=== PATIENT | male | born 1960 | race American Indian/Alaskan Native ===

== ENCOUNTER 2022-04-04 13:24 | Observation (INO) | payer BC, MEDICAID, OTHER ==
[2022-04-04] MEDS ORDERED: MVI, Adult with Vitamin K 10 ML, Folic Acid 1 MG, Thiamine 100 MG in Lactated Ringers 1... IV ONE ×4 (13:46)
[2022-04-04] MEDS ORDERED: Promethazine 25 MG/ML SDV IM ONE (13:54)
[2022-04-04 14:32] LABS: ANION GAP 22.5 mEq/L (7-13)
[2022-04-04] MEDS ORDERED: Sodium Chloride 0.9% 1,000 ML IV ONE ×3 (14:53→17:35)
[2022-04-04] MEDS ORDERED: Iopamidol 612 MG/ML 100 ML Bottle IVPUSH ONE (14:54)
[2022-04-04 16:04] LABS: AMPHETAMINES,URINE NEGATIVE (NEGATIVE); BARBITURATES,URINE NEGATIVE (NEGATIVE); BENZODIAZEPINE,URINE NEGATIVE (NEGATIVE); MDMA (ECSTASY), URINE NEGATIVE (NEGATIVE); METHADONE,URINE NEGATIVE (NEGATIVE); METHAMPHETAMINES,URINE NEGATIVE (NEGATIVE); OPIATES,URINE NEGATIVE (NEGATIVE); OXYCODONE,URINE NEGATIVE (NEGATIVE); PHENCYCLIDINE,URINE NEGATIVE (NEGATIVE); TCA,URINE NEGATIVE (NEGATIVE)
[2022-04-04] MEDS ORDERED: Sodium Chloride 0.9% 1,000 ML IV SCH (21:00)
[2022-04-04] MEDS ORDERED: 50% Dextrose in Water 50 ML Syringe IVPUSH PRN (21:03)
[2022-04-04] MEDS ORDERED: Glucagon,Human Recombinant 1 MG Vial IM PRN (21:03)
[2022-04-04] MEDS ORDERED: ClonazePAM 0.5 MG Tab PO SCH (21:15)
[2022-04-04 21:21] LABS: HEMOGLOBIN A1C 9.8 % (<5.7)
[2022-04-04] MEDS: Acetaminophen 325 MG Tab PO PRN (21:50)
[2022-04-04] MEDS: ClonazePAM 0.5 MG Tab PO SCH (21:51)
[2022-04-04] MEDS: Insulin Lispro 100 Units/ML 3 ML Vial SUBCUT SCH (21:51)
[2022-04-04] MEDS: LORazepam 0.5 MG Tab PO PRN (23:21)
[2022-04-04] MEDS: Pantoprazole 40 MG Vial IVPUSH SCH (23:21)
[2022-04-04] MEDS: Ondansetron 4 MG/2 ML SDV IVPUSH PRN (23:21)
[2022-04-05] MEDS: ClonazePAM 0.5 MG Tab PO SCH ×3 (05:07→21:58)
[2022-04-05] MEDS ORDERED: Pantoprazole 40 MG Tab.CR PO SCH (06:00)
[2022-04-05 06:10] LABS: ANION GAP 13.4 mEq/L (7-13); CHLORIDE,CL 101 mmol/L (98-107); SODIUM,NA 139 mmol/L (136-145)
[2022-04-05] MEDS ORDERED: Insulin Glarg,Human.Rec.Analog 100 Unit/ML SUBCUT SCH ×2 (09:00→21:00)
[2022-04-05] MEDS: Insulin Lispro 100 Units/ML 3 ML Vial SUBCUT SCH ×4 (09:06→21:57)
[2022-04-05] MEDS: amLODIPine 5 MG Tab PO SCH (09:07)
[2022-04-05] MEDS: Thiamine 100 MG Tab PO SCH (09:08)
[2022-04-05] MEDS: Acetaminophen 325 MG Tab PO PRN ×2 (09:08→21:58)
[2022-04-05] MEDS: Folic Acid 1 MG Tab PO SCH (09:08)
[2022-04-05] MEDS: Enoxaparin 40 MG/0.4 ML Syringe SUBCUT SCH (09:10)
[2022-04-05] MEDS: Ondansetron 4 MG/2 ML SDV IVPUSH PRN (09:10)
[2022-04-05] MEDS: Sucralfate Suspension 1 GM/10 ML Cup PO PRN ×2 (13:43→20:16)
[2022-04-05] MEDS ORDERED: Sodium Chloride 0.9% 10 ML Syringe FLUSH PRN (16:23)
[2022-04-05] MEDS: LORazepam 0.5 MG Tab PO PRN (18:14)
[2022-04-05] MEDS ORDERED: Pantoprazole 40 MG Vial IVPUSH SCH (21:00)
[2022-04-05] MEDS: Pantoprazole 40 MG Vial IVPUSH SCH (21:59)
[2022-04-06] MEDS: ClonazePAM 0.5 MG Tab PO SCH (05:10)
[2022-04-06] MEDS: Acetaminophen 325 MG Tab PO PRN (05:10)
[2022-04-06] MEDS: Ondansetron 4 MG/2 ML SDV IVPUSH PRN (05:12)
[2022-04-06 05:58] LABS: ANION GAP 13.3 mEq/L (7-13); CHLORIDE,CL 100 mmol/L (98-107); SODIUM,NA 137 mmol/L (136-145)
[2022-04-06] MEDS: Insulin Lispro 100 Units/ML 3 ML Vial SUBCUT SCH (08:51)
[2022-04-06] MEDS: Enoxaparin 40 MG/0.4 ML Syringe SUBCUT SCH (08:51)
[2022-04-06] MEDS: Thiamine 100 MG Tab PO SCH (08:53)
[2022-04-06] MEDS: Folic Acid 1 MG Tab PO SCH (08:54)
[2022-04-06] MEDS: amLODIPine 5 MG Tab PO SCH (08:54)
[2022-04-06] MEDS ORDERED: ClonazePAM 0.5 MG Tab ONE (11:31)
[2022-04-06] MEDS ORDERED: amLODIPine 5 MG Tab ONE (11:33)
[2022-04-06] MEDS ORDERED: Lisinopril 10 MG Tab ONE (11:37)
[2022-04-06] MEDS ORDERED: Pantoprazole 40 MG Tab.CR ONE (11:38)
[2022-04-06] MEDS ORDERED: glipiZIDE 5 MG Tab.ER ONE (11:40)
[2022-04-06] MEDS ORDERED: atorvaSTATin 10 MG Tab ONE (11:41)
[2022-04-06] MEDS ORDERED: Ondansetron 4 MG Tab.DIS ONE (11:42)
[2022-04-06] MEDS ORDERED: ClonazePAM 0.5 MG Tab PO ONE (11:54)
[2022-04-06] MEDS ORDERED: Pantoprazole 40 MG Tab.CR PO ONE (11:54)
[2022-04-06] MEDS ORDERED: atorvaSTATin 10 MG Tab PO ONE (11:54)
[2022-04-06] MEDS ORDERED: Ondansetron 4 MG Tab.DIS PO ONE (11:54)
[2022-04-06] MEDS ORDERED: glipiZIDE 5 MG Tab.ER PO ONE (11:54)
[2022-04-06] MEDS ORDERED: amLODIPine 5 MG Tab PO ONE (11:54)
[2022-04-06] MEDS ORDERED: Lisinopril 10 MG Tab PO ONE (11:54)
== END 2022-04-06 11:55 | disposition home or self-care (01) ==
LOC: DL.ED 13:24 → DL.MS 17:39 → DL.ED 18:06
PROVIDERS: ADMIT Internal Medicine; ATTEND Internal Medicine
DX: F10.129 Alcohol abuse with intoxication, unspecified (principal); E11.65 Type 2 diabetes mellitus with hyperglycemia; I10 Essential (primary) hypertension; E78.00 Pure hypercholesterolemia, unspecified; E66.9 Obesity, unspecified; R11.10 Vomiting, unspecified; Z98.890 Other specified postprocedural states; R19.7 Diarrhea, unspecified; Z79.84 Long term (current) use of oral hypoglycemic drugs; Z20.822 Contact with and (suspected) exposure to COVID-19
CPT/HCPCS: 36415; 70450; 74177; 80053; 80305; 80307; 81001; 82272; 82947; 83036; 83605; 85025; 85610; 87635; 96361; 96365; 96372; 99285; A9270; C9113; J1650; J1815; J2405; J2550; J3411; J3490; J7030; J7120; Q9967; G0378; U0002

== ENCOUNTER 2022-04-08 02:47 | Emergency (ER) | payer BC, MEDICAID ==
[2022-04-08] MEDS ORDERED: Pantoprazole 40 MG in Sodium Chloride 0.9% 100 ML IV ONE (03:08)
[2022-04-08] MEDS ORDERED: Sodium Chloride 0.9% 1,000 ML IV ONE ×2 (03:08→04:39)
[2022-04-08 03:31] LABS: ANION GAP 23.6 mEq/L (7-13); CHLORIDE,CL 102 mmol/L (98-107); SODIUM,NA 141 mmol/L (136-145)
[2022-04-08] MEDS ORDERED: Insulin Regular, Human 100 Units/ML 3 ML Vial IV ONE (03:41)
[2022-04-08] MEDS ORDERED: 50% Dextrose in Water 50 ML Syringe IVPUSH PRN (03:41)
[2022-04-08] MEDS ORDERED: Glucagon,Human Recombinant 1 MG Vial IM PRN (03:41)
[2022-04-08 04:34] LABS: AMPHETAMINES,URINE NEGATIVE (NEGATIVE); BARBITURATES,URINE NEGATIVE (NEGATIVE); BENZODIAZEPINE,URINE POSITIVE (NEGATIVE); MDMA (ECSTASY), URINE NEGATIVE (NEGATIVE); METHADONE,URINE NEGATIVE (NEGATIVE); METHAMPHETAMINES,URINE NEGATIVE (NEGATIVE); OPIATES,URINE NEGATIVE (NEGATIVE); OXYCODONE,URINE NEGATIVE (NEGATIVE); PHENCYCLIDINE,URINE NEGATIVE (NEGATIVE); TCA,URINE NEGATIVE (NEGATIVE)
[2022-04-08] MEDS ORDERED: Ibuprofen 600 MG Tab PO ONE (06:04)
== END 2022-04-08 06:36 | disposition home or self-care (01) ==
LOC: DL.ED 02:47
DX: S20.212A Contusion of left front wall of thorax, initial encounter (principal); F10.220 Alcohol dependence with intoxication, uncomplicated; E11.65 Type 2 diabetes mellitus with hyperglycemia; E78.00 Pure hypercholesterolemia, unspecified; I10 Essential (primary) hypertension; E66.9 Obesity, unspecified; Z68.32 Body mass index [BMI] 32.0-32.9, adult; Z79.899 Other long term (current) drug therapy
CPT/HCPCS: 36415; 71045; 80053; 80305; 80307; 81001; 82947; 83735; 85025; 93005; 96361; 96374; 99284; A9270; C9113; J1815; J3490; J7030; 93010

== ENCOUNTER 2022-04-15 12:40 | Emergency (ER) | payer MEDICAID ==
[2022-04-15] MEDS ORDERED: GI Cocktail Oral Solution 30 ML PO ONE (13:02)
[2022-04-15] MEDS ORDERED: Sodium Chloride 0.9% 10 ML Syringe FLUSH PRN (13:58)
[2022-04-15] MEDS ORDERED: Sodium Chloride 0.9% 1,000 ML IV ONE (13:59)
[2022-04-15] MEDS ORDERED: Ondansetron 4 MG/2 ML SDV IVPUSH ONE (15:59)
[2022-04-15] MEDS ORDERED: Ketorolac 30 MG/ML SDV IVPUSH ONE (15:59)
[2022-04-15] MEDS ORDERED: HYDROmorphone 0.5 MG/0.5 ML Syringe IVPUSH ONE (19:06)
== END 2022-04-15 20:50 ==
LOC: DL.ED 12:40
DX: K81.9 Cholecystitis, unspecified (principal); E80.7 Disorder of bilirubin metabolism, unspecified; R74.01 Elevation of levels of liver transaminase levels; E78.00 Pure hypercholesterolemia, unspecified; I10 Essential (primary) hypertension; E11.9 Type 2 diabetes mellitus without complications; E66.9 Obesity, unspecified; Z68.31 Body mass index [BMI] 31.0-31.9, adult; Z79.899 Other long term (current) drug therapy; Z20.822 Contact with and (suspected) exposure to COVID-19
CPT/HCPCS: 36415; 74176; 80053; 83605; 83690; 83735; 84484; 85025; 87635; 93005; 96361; 96374; 96375; 99285; A9270; J1170; J1885; J2405; J3490; J7030; U0002

== ENCOUNTER 2022-04-21 10:41 | Emergency (ER) | payer MEDICAID ==
[2022-04-21] MEDS ORDERED: Acetaminophen/oxyCODONE 325-5 MG Tab PO ONE (11:41)
[2022-04-21] MEDS ORDERED: Ondansetron 4 MG Tab.DIS PO ONE (11:41)
[2022-04-21 12:11] LABS: ANION GAP 15.5 mEq/L (7-13); CHLORIDE,CL 105 mmol/L (98-107); SODIUM,NA 144 mmol/L (136-145)
[2022-04-21 12:19] LABS: ESTIMATED GFR > 60
== END 2022-04-21 12:38 | disposition home or self-care (01) ==
LOC: DL.ED 10:41
DX: G89.18 Other acute postprocedural pain (principal); R10.9 Unspecified abdominal pain; E78.00 Pure hypercholesterolemia, unspecified; I10 Essential (primary) hypertension; E11.9 Type 2 diabetes mellitus without complications; E66.9 Obesity, unspecified; Z68.33 Body mass index [BMI] 33.0-33.9, adult; Z79.899 Other long term (current) drug therapy
CPT/HCPCS: 36415; 80053; 83605; 85025; 86140; 99283; 99284; A9270-GY

== ENCOUNTER 2023-09-12 14:10 | Emergency (ER) | payer MEDICAID ==
[2023-09-12 14:57] LABS: CORONAVIRUS COVID-19 NAA NEGATIVE (NEGATIVE); INFLUENZA A NAA NEGATIVE (NEGATIVE); INFLUENZA B NAA NEGATIVE (NEGATIVE); RESPIRATORY SYNCYTIAL VIR NAA NEGATIVE (NEGATIVE)
[2023-09-12] MEDS ORDERED: hydrALAZINE 25 MG Tab PO ONE (15:07)
== END 2023-09-12 15:42 | disposition home or self-care (01) ==
LOC: DL.ED 14:10
DX: B34.9 Viral infection, unspecified (principal); I10 Essential (primary) hypertension; E11.9 Type 2 diabetes mellitus without complications; E66.9 Obesity, unspecified; Z68.33 Body mass index [BMI] 33.0-33.9, adult; Z79.899 Other long term (current) drug therapy; Z79.84 Long term (current) use of oral hypoglycemic drugs; Z20.822 Contact with and (suspected) exposure to COVID-19
CPT/HCPCS: 0241U; 99283; 99284; A9270-GY

== ENCOUNTER 2023-12-10 18:27 | Emergency (ER) | payer MEDICAID | END 2023-12-10 20:28 | disposition home or self-care (01) | LOC: DL.ED 18:27 | DX: M62.830 Muscle spasm of back (principal); I10 Essential (primary) hypertension; E78.00 Pure hypercholesterolemia, unspecified; E66.9 Obesity, unspecified; E11.9 Type 2 diabetes mellitus without complications; Z79.899 Other long term (current) drug therapy; Z90.49 Acquired absence of other specified parts of digestive tract; Z68.32 Body mass index [BMI] 32.0-32.9, adult | CPT/HCPCS: 99283 ==